=== PATIENT | female | born 1970 | race Caucasian/White ===

== ENCOUNTER → 2017-05-19 16:34 | Outpatient (CLI) | payer OTHER, SELFPAY ==
[2017-05-19 19:14] LABS: CPK Total, Creatine Kinase 345 U/L (26-192)
[2017-05-19 23:47] LABS: Vitamin B12 975 pg/mL (211-911); Vitamin D,25 Hydroxy 10.4 ng/mL (19.95-100.01)
[2017-05-21 16:09] LABS: Creatine Kinase MB 0 % (0-3); Creatine Kinase MM 97 % (97-100); Creatine Kinase,Total,Serum 350 U/L (24-173); Macro II 0 % (Not Observed); Myoglobin, Urine < 2 ng/mL (0-13)
[2017-05-22 10:22] LABS: Creatine Kinase BB 0 % (0); Macro I 3 % (Not Observed)
[2017-05-22 10:23] LABS: Myoglobin, Serum 76 ng/mL (25-58)
== END ==
PROVIDERS: Family Provider Nurse Practitioner; PCP Nurse Practitioner; Visit Provider Nurse Practitioner
DX: M79.1 Myalgia (principal); R20.1 Hypoesthesia of skin
CPT/HCPCS: 36415; 82306; 82550; 82552; 82607; 82746; 83874

== ENCOUNTER → 2017-05-27 12:52 | Outpatient (CLI) | payer OTHER, SELFPAY ==
[2017-05-29 16:05] LABS: Aldolase 4.3 U/L (3.3-10.3)
== END ==
PROVIDERS: Family Provider Nurse Practitioner; PCP Nurse Practitioner; Visit Provider Nurse Practitioner
DX: R74.8 Abnormal levels of other serum enzymes (principal)
CPT/HCPCS: 36415; 82085; 84484

== ENCOUNTER → 2017-07-11 07:08 | Outpatient (CLI) | payer OTHER, SELFPAY ==
--- NOTE | 2017-07-12 09:55 | AMBEEG ---
- Amb EEG per 24 hours date of service 07/11/17 18 channel eeg performed for episodic altered consciousness. 10-20 protocol, ecg leads, hv and photic stim were all utilized. hv is unremarkeable, ecg is nsr. photic elicits a normal driving response in the posterior leads.there are no lateralizing or epileptiform changes noted. and the patient remained awake throughout the recording. impression: normal awake eeg.
== END ==
PROVIDERS: Family Provider Nurse Practitioner; PCP Nurse Practitioner; Visit Provider Nurse Practitioner
DX: R46.89 Other symptoms and signs involving appearance and behavior (principal)
CPT/HCPCS: 95819

== ENCOUNTER → 2017-08-25 15:43 | Outpatient (CLI) | payer OTHER, SELFPAY ==
--- NOTE | 2017-08-25 15:47 | RAD_ITS ---
XR Sinuses Paranasal Min 3 Views INDICATION: COUGH, BERNSTEIN, NO SINUS COMPLAINTS COMPARISON: None TECHNIQUE: Epstein, Huber, and lateral views of the paranasal sinuses. FINDINGS: There are no layering effusion seen. Frontal sinus and maxillary sinuses and ethmoid sinuses appear well aerated. Nasal bones and orbits appear intact. RAD/Sinuses min 3 Views IMPRESSION: Paranasal sinuses appear clear by plain film. at 0049 Reported and signed by: Cristal Kennedy MD Electronically Signed: Cristal Kennedy MD at 0:47 EDT Tel , Service support ,
[2017-08-25 18:14] LABS: ALB/GLOB Ratio 0.9 RATIO (0.9-2.4); AST(SGOT) 16 U/L (15-37); Alanine Aminotransfer ALT/SGPT 17 U/L (13-56); Albumin, Serum 3.6 g/dL (3.2-5.0); Alkaline Phosphatase 149 U/L (45-117); BUN 10 mg/dL (7-18); BUN/Creat Ratio 12.8 RATIO (10-20); Calcium,Total 8.9 mg/dL (8.5-10.1); Creatinine, Serum 0.78 mg/dL (0.55-1.02); EST Glomerular Filtration Rate 84 mL/min (>60); Est Glom Filt Rate - Afr Amer 101 mL/min (>60); Globulin 4.2 g/dL (2.2-4.2); Glucose 92 mg/dL (74-106); Protein, Total 7.8 g/dL (6.4-8.2); Sodium Level 140 mmol/L (136-145)
[2017-08-25 18:15] LABS: Anion Gap 8 (5-15); Chloride 104 mmol/L (98-107); Hemoglobin A1c 5.6 % (4.2-6.3); Potassium 3.6 mmol/L (3.5-5.1); T4 Free Direct 1.12 ng/dL (0.76-1.46); Thyroid Stim Hormone (TSH) 0.19 uIU/mL (0.358-3.74)
[2017-08-25 19:38] LABS: T3 Total - Triiodothyronine 1.28 ng/mL (0.6-1.81)
== END ==
LOC: LAB 15:46 → MTLAB 15:47
PROVIDERS: Family Provider Nurse Practitioner; PCP Nurse Practitioner; Visit Provider Internal Medicine Endocrinology, Diabetes & Metabolism
DX: E89.0 Postprocedural hypothyroidism (principal); R05 Cough
CPT/HCPCS: 36415; 70220; 80053; 83036; 84439; 84443; 84480

== ENCOUNTER → 2017-11-12 12:49 | Outpatient (CLI) | payer OTHER, SELFPAY ==
--- NOTE | 2017-11-12 12:50 | ECHOCS_ITS ---
Reason For Study: PHTN Procedure This was a 2D Doppler, Color Flow transthoracic echocardiogram. Exam performed in department. Left Ventricle Normal size and thickness. Apical false tendon noted. The estimated ejection fraction is 65 %. Normal diastology for age. No regional wall motion abnormalities noted. Right Ventricle Normal size and thickness. Normal systolic function. Atria Normal left atrium. Normal right atrium. Normal atrial septum. Mitral Valve The mitral valve is structurally normal. No prolapse or stenosis seen. Trivial mitral valve insufficiency. Tricuspid Valve Normal tricuspid valve. Trivial tricuspid valve insufficiency. Right ventricular systolic pressure estimated to be 20 mmHg. Aortic Valve Normal aortic valve. Trisinus/trileaflet aortic valve. Pulmonic Valve Normal pulmonic valve. Great Vessels Normal aortic root. Normal arch. Normal inferior vena cava. Inferior vena cava collapse with sniff. Pericardium/Pleural No pericardial effusion. MMode/2D Measurements & Calculations LVIDd: 4.2 cm IVSd: 0.88 cm Ao root diam: 2.8 cm LVIDs: 3.0 cm LVPWd: 0.95 cm RVDd: 3.8 cm FS: 28.6 % LAV(MOD-bp): 57.7 ml EDV(MOD-sp4): 79.0 ml SV(MOD-sp4): 50.4 ml LAV(MOD-bp) Indexed: 28.0 ml/m2 ESV(MOD-sp4): 28.6 ml LAV(MOD-sp2): 52.0 ml EF(MOD-sp4): 63.8 % LAV(MOD-sp4): 58.6 ml LA A4 area: 19.5 cm2 RA A4 area: 13.5 cm2 Doppler Measurements & Calculations MV E max ar: 75.1 cm/sec Lat Peak E' Ar: 13.2 cm/sec Med Peak E' Ar: 13.9 cm/sec MV A max ar: 49.9 cm/sec E/E' lat: 5.7 E/E' med: 5.4 MV E/A: 1.5 Ao V2 max: 122.4 cm/sec LV V1 max: 94.1 cm/sec PA V2 max: 123.1 cm/sec Ao max P.0 mmHg LV V1 max P.5 mmHg Ao V2 mean: 93.3 cm/sec Ao mean P.7 mmHg Ao V2 VTI: 29.4 cm TR max ar: 199.8 cm/sec TR max P.0 mmHg Interpretation Summary The estimated ejection fraction is 65 %. Normal diastology for age. Trivial mitral valve insufficiency. Trivial tricuspid valve insufficiency. Right ventricular systolic pressure estimated to be 20 mmHg. Compared to echo report dated 06/16/2014, no appreciable changes noted. Ordering Physician: Naldo Lowe Referring Physician: Josiane Mendez Performed By: Le Sarkar, JOHNATHAN, RVT
== END ==
PROVIDERS: Family Provider Nurse Practitioner; PCP Nurse Practitioner; Visit Provider Internal Medicine Critical Care Medicine
DX: R06.09 Other forms of dyspnea (principal)
CPT/HCPCS: 93306

== ENCOUNTER → 2017-11-18 12:18 | Outpatient (CLI) | payer OTHER, SELFPAY ==
[2017-11-18 12:41] VITALS: PULSE 68; PULSE 73; PULSE 93; PULSE 96; PULSE 97; PULSE 98; PULSE 99; O2SAT 96; O2SAT 98; O2SAT 99
--- NOTE | 2017-11-18 14:23 | PCM.PSN.6M ---
PSN 6 Minute Walk Test - 6 Minute Walk Test 6 Minute Walk Test: 6 Minute Walk Test PSN:6-Minute Walk Test Start: 11/18/17 12:41 Freq: Status: Active Protocol: RESP.6MINW Document 11/18/17 12:41 MARIE (Rec: 11/18/17 12:43 MARIE [id number]) 6 Minute Walk Test Date Performed 11/18/17 Time Performed 12:25 Height 5 ft 6 in Weight: 215 lb Weight in Pounds [address]: Naldo Lowe Assistive device used: None Pre-test Oxygen Delivery Method Room Air Pulse Ox (%) 99 Pulse Rate (60-100 beats/min) 68 Dyspnea Ericka Scale (0-10) 0 Exertion Ericka Scale (6-20) 6 1st minute Oxygen Delivery Method Room Air Pulse Ox (%) 99 Pulse Rate (60-100 beats/min) 93 2nd minute Oxygen Delivery Method Room Air Pulse Ox (%) 96 Pulse Rate (60-100 beats/min) 96 3rd minute Oxygen Delivery Method Room Air Pulse Ox (%) 98 Pulse Rate (60-100 beats/min) 97 4th minute Oxygen Delivery Method Room Air Pulse Ox (%) 98 Pulse Rate (60-100 beats/min) 98 5th minute Oxygen Delivery Method Room Air Pulse Ox (%) 98 Pulse Rate (60-100 beats/min) 98 6th minute Oxygen Delivery Method Room Air Pulse Ox (%) 98 Pulse Rate (60-100 beats/min) 99 Dyspnea Ericka Scale (0-10) 2 Exertion Ericka Scale (6-20) 14 Post-test Oxygen Delivery Method Room Air Pulse Ox (%) 99 Pulse Rate (60-100 beats/min) 73 Full Laps Walked 18 Partial Lap, Number of Tiles Walked 0 Total Distance Walked (ft) 1062 - Interpretation Interpretation: The patient ambulated 1062 feet over the course of 6 minutes beginning on room air without assistive devices or breaks. Pretesting oxygen saturation was noted to be 99% on room air. With ambulation, the dev oxygen saturation was 96%. There was no significant exertional oxygen desaturation. - Recommendations Recommendations: There is no indication for the use of supplemental oxygen at this time.
== END ==
PROVIDERS: Family Provider Nurse Practitioner; PCP Nurse Practitioner; Visit Provider Internal Medicine Critical Care Medicine
DX: R06.09 Other forms of dyspnea (principal)
CPT/HCPCS: 94618

== ENCOUNTER → 2017-12-02 12:51 | Outpatient (CLI) | payer OTHER, SELFPAY ==
--- NOTE | 2017-12-02 16:09 | PFTCOMP ---
COMPLETE PULMONARY FUNCTION TEST INTERPRETATION Brief HPI: Patient is a 47 year old female, currently under the care of myself, who presents to [facility] for complete pulmonary function tests secondary to diagnosis of dyspnea. Respiratory therapist reports good effort and reproducible results. Interpretation: Forced expiration spirometry shows no large airways obstructive ventilatory defect with an FEV1 of 78% predicted. There is no significant bronchodilator response by ATS criteria. Spirograms are of good quality and plateau normally. The respiratory flow volume loop shows a normal pattern. Lung volumes by body plethysmography show a normal total lung capacity at 4.7 L, 87% predicted. All other lung volumes are within normal limits. Diffusion capacity by carbon monoxide is at the lower limit of normal at 73% predicted. The airway resistance is normal. Compared to previous pulmonary function tests from 10/16/2015, there has been no significant change. Impression: These pulmonary function tests are grossly within normal limits. Lung volumes and diffusing capacity are at the lower limit of normal, but grossly unchanged compared to previous study 2 years prior.
== END ==
PROVIDERS: Family Provider Nurse Practitioner; PCP Nurse Practitioner; Visit Provider Internal Medicine Critical Care Medicine
DX: R06.09 Other forms of dyspnea (principal)
CPT/HCPCS: 94060; 94726; 94729

== ENCOUNTER → 2018-05-15 11:43 | Outpatient (CLI) | payer OTHER, SELFPAY ==
[2018-05-15 13:52] LABS: Absolute Lymphocyte Count 2.27 X10^3/ul (0.83-4.51); Absolute Neutrophil Count 4.8 X10^3/uL (2.0-7.7); Basophil# 0.02 X10^3/uL; Basophil% 0.3 % (0-1); Eosinophil# 0.09 X10^3/uL; Eosinophils% 1.2 % (0-5); Hematocrit 42.1 % (37-47); Hemoglobin 13.5 g/dl (12.0-15.0); Lymphocyte # 2.27 X10^3/ul (4.0); Lymphocyte % 29.2 % (19-41); Mean Corp Hgb Conc 32.1 g/gl (32-36); Mean Corpuscular Hgb 31.3 pg (27.0-32.0); Mean Corpuscular Volume 97.5 fL (81-99); Mean Platelet Vol. 9.6 fl (6.2-12.0); Monocyte# 0.63 X10^3/uL; Monocyte% 8.1 % (0-10); Neutrophil # 4.76 X10^3/uL (2.7-7.7); Neutrophil % 61.1 % (47-70); Platelet Count 314 K/mm3 (150-450); RBC Distribution Width CV 14.7 % (11.6-14.6); RBC Distribution Width SD 52.9 fl (35.1-43.9); Red Blood Count 4.32 M/mm3 (4.2-5.4); White Blood Count 7.8 K/mm3 (4.4-11.0)
[2018-05-15 13:53] LABS: POSITIVE COUNT NO; POSITIVE DIFFERENTIAL NO; POSITIVE MORPHOLOGY NO
[2018-05-15 14:14] LABS: ALB/GLOB Ratio 0.9 RATIO (0.9-2.4); AST(SGOT) 9 U/L (15-37); Alanine Aminotransfer ALT/SGPT 20 U/L (13-56); Albumin, Serum 3.8 g/dL (3.2-5.0); Alkaline Phosphatase 124 U/L (45-117); Anion Gap 10 (5-15); BUN 10 mg/dL (7-18); CPK Total, Creatine Kinase 60 U/L (26-192); Calcium,Total 8.9 mg/dL (8.5-10.1); Chloride 107 mmol/L (98-107); Creatinine, Serum 0.71 mg/dL (0.55-1.02); EST Glomerular Filtration Rate 92 mL/min (>60); Est Glom Filt Rate - Afr Amer 112 mL/min (>60); Globulin 4.1 g/dL (2.2-4.2); Glucose 97 mg/dL (74-106); Potassium 3.8 mmol/L (3.5-5.1); Protein, Total 7.9 g/dL (6.4-8.2); Sodium Level 143 mmol/L (136-145); Vitamin B12 511 pg/mL (211-911)
== END ==
LOC: MTLAB 11:44
PROVIDERS: Family Provider Nurse Practitioner; PCP Nurse Practitioner; Referring Provider Nurse Practitioner; Visit Provider Nurse Practitioner
DX: M79.10 Myalgia, unspecified site (principal); R53.82 Chronic fatigue, unspecified
CPT/HCPCS: 36415; 80053; 82550; 82607; 85025